=== PATIENT | female | born 1985 | race Caucasian/White ===

== ENCOUNTER 2017-09-05 13:35 | Emergency (ER) | payer BC ==
--- NOTE | 2017-09-05 14:06 | ED ---
- HPI Summary HPI Summary: There is erythema presents ED with complaints of actively miscarrying, heavy vaginal bleeding that began a few hours ago. Patient states she began spotting this morning was seen by her FLY WORKER around 11:30 had an ultrasound that did confirm miscarriage. Patient was approximately 8 weeks per ultrasound results. 2 P1 including this . Has never had a miscarriage before. States after leaving doctor's office she began bleeding more heavily. States she went through a heavy tampon in approximately 10 minutes. States every time she stood up she hemorrhaged. Was told by FLY WORKER to go to ER if she was soaking through tampons within an hour. Denies any concern for infection. Is in minimal pain. Mild cramping. No other complaints or concerns. No past medical history medications. - History of Current Complaint Chief Complaint: EDVaginalBleeding Stated Complaint: ABNORMAL BLEEDING Hx Obtained From: Patient Chief Complaint: Vaginal Bleeding Onset/Duration: Started Hours Ago, Still Present Timing: Constant Severity: Mild Current Severity: None Pain Intensity: 2 Location of Pain: None Character: Cramping Aggravating Factors: Movement - Standing up standing up Alleviating Factors: Nothing Associated Signs and Symptoms: Positive: Vaginal Bleeding or Discharge - Assessment Hx Now: Yes Hx : 2 Hx Para: 1 SAB: 0 IEA: 0 History of Ectopic : No Vaginal Bleeding Amount: Large - Additional Pertinent History Maternal Blood Type and Rh: A Positive - Allergies/Home Medications Allergies/Adverse Reactions: Allergies Allergy/AdvReac Type Severity Reaction Status Date / Time No Known Allergies Allergy Verified 09/05/17 13:49 Home Medications: Home Medications Vitamin TAB* 1 tab PO DAILY 09/05/17 [History Confirmed 09/05/17] PMH/Surg Hx/FS Hx/Imm Hx Endocrine/Hematology History: Denies: Hx Anticoagulant Therapy, Hx Blood Disorders, Hx Anemia Cardiovascular History: Denies: Hx Hypertension Respiratory History: Denies: Hx Asthma - Surgical History Surgery Procedure, Year, and Place: wisdom teeth - Immunization History Immunizations Up to Date: Yes Infectious Disease History: No Infectious Disease History: Reports: Traveled Outside the [place] in Last 30 Days - came back from [facility] on Monday Denies: History Other Infectious Disease - Family History Known Family History: Positive: None - Social History Alcohol Use: None Substance Use Type: Reports: None Smoking Status (MU): Never Smoked Tobacco Review of Systems Constitutional: Negative Cardiovascular: Negative Respiratory: Negative Gastrointestinal: Negative Positive: other - vaginal bleeding, cramping All Other Systems Reviewed And Are Negative: Yes Physical Exam - Physical Exam Triage Information Reviewed: Yes Vital Signs On Initial Exam: Temp 98.2 heart rate 108 blood pressure 130/74 O2 96 % respirations 16 Vital Signs Reviewed: Yes Appearance: Positive: Well-Appearing, No Pain Distress, Well-Nourished Skin: Positive: Warm, Skin Color Reflects Adequate Perfusion, Dry. Negative: Cold, Numb, Soft, "Wooden", Cyanosis @, Diaphoretic, Jaundiced, Erythema @ Head/Face: Positive: Normal Head/Face Inspection ENT: Positive: Pharynx normal Neck: Positive: Supple Respiratory/Lung Sounds: Positive: Clear to Auscultation, Breath Sounds Present. Negative: Rales, Rhonchi, Wheezes Cardiovascular: Positive: Normal, RRR, Pulses are Symmetrical in both Upper and Lower Extremities. Negative: Murmur, Rub Abdomen Description: Positive: Nontender - Minimal discomfort on palpation of suprapubic area, Soft. Negative: CVA Tenderness (R), CVA Tenderness (L), Distended, Guarding Bowel Sounds: Positive: Present Musculoskeletal: Positive: Normal, Strength/ROM Intact Neurological: Positive: Normal, Sensory/Motor Intact, Alert, Oriented to Person Place, Time - Vaginal Assessment Examined By: Nereida Robles - & Dr Garcia Diagnostics - Vital Signs Vital Signs Temp Pulse Resp BP Pulse Ox 09/05/17 14:00 102 117/69 97 09/05/17 13:58 76 92 09/05/17 13:57 116/68 09/05/17 13:42 98.2 F 108 16 130/74 96 - Laboratory Result Diagrams: 09/05/17 16:18 09/05/17 14:17 Lab Statement: Any lab studies that have been ordered have been reviewed, and results considered in the medical decision making process. Re-Evaluation - Re-Evaluation First Eval Re-Evaluation Time: 16:45 Change: Improved - bleeding has decreased significantly, updated on labs and plan. Course/Dx - Course Course Of Treatment: No further imaging required as patient had ultrasound early this morning to confirm miscarriage. Labs obtained original H&H were normal repeated CBC 2 hours later to recheck H&H, still and normal range. Did not appear to be hemorrhaging or anemic at this time. Normal vitals throughout stay. Patient otherwise asymptomatic. Products of conception were obtained during pelvic exam in the vaginal canal. Sent down to lab. Patient is no longer experiencing heavy bleeding, light "menses like" bleeding per patient even when changing positions/sitting/standing. Cervix and vaginal canal appeared normal after removal of clots and products of conception. Encouraged use of pads rather than tampons. Tylenol or ibuprofen for discomfort along compresses. Soaking through a maxi tampon or pad within an hour over several hours time span return to ED. Patient is aware worsening signs and symptoms watch out for. Follow-up with FLY WORKER, call to make an appointment to have repeat hCG and ultrasound. Patient agrees and understands plan. Dr Garcia was present during pelvic and agreed with plan. Spoke with Dr Eileen GUTIERREZ clay pigeon loader who also agrees with plan and will follow up with patient in office. - Differential Diagnosis/HQI/PQRI: Spontaneous , Early , Retained Products of Conception, Vaginal Bleeding, Other: - hemmorhage - Diagnoses Provider Diagnoses: Miscarriage - Provider Notifications Discussed Care Of Patient With: Henry Arellano - Dr Garcia Time Discussed With Above Provider: 16:40 Instructed by Provider To: Have Pt Call For Appt. Discharge - Sign-Out/Discharge Documenting (check all that apply): Discharge - Discharge Plan Condition: Improved Disposition: HOME Patient Education Materials: Miscarriage (ED) Referrals: No Primary Care Phys,NOPCP [Primary Care Provider] - Henry Arellano MD [Medical Doctor] - Additional Instructions: Please follow up and make an appointment have repeat blood work and ultrasound with your FLY WORKER as we discussed. Continue using pads. Warm compresses, ibuprofen/Tylenol as needed for any discomfort. Any new or worsening symptoms such as heavy bleeding for prolonged period time, soaking through maxipads every hour, increased pain, lightheadedness or dizziness please return to ED as we discussed. Follow-up with FLY WORKER. - Billing Disposition and Condition Condition: IMPROVED Disposition: HOME Physical Exam - Physical Exam Pelvic Exam: External Exam Normal, Active Bleeding, Other - products of conception noted in the vaginal canal, no signs of hemorrhaging, clots removed. Products of conception were obtained and sent to lab
[2017-09-05 14:38] LABS: ABS Basophils 0 10^3/ul (0-0.2); ABS Eosinophils 0 10^3/ul (0-0.6); ABS Lymphocytes 1.4 10^3/ul (1.0-4.8); ABS Monocytes 0.5 10^3/ul (0-0.8); ABS Neutrophils 9.2 10^3/ul (1.5-7.7); ABS Nucleated RBC 0 10^3/ul; Eosinophil % 0.2 % (0-6); Hematocrit 36 % (35-47); Hemoglobin 12.3 g/dl (12.0-16.0); Lymphocyte % 12.6 % (25-47); Mean Corpuscular HGB Conc 34 g/dl (31-36); Mean Corpuscular Hemoglobin 28 pg (27-31); Mean Corpuscular Volume 84 fL (80-97); Mean Platelet Volume 8.8 um3 (7.4-10.4); Nucleated Red Blood Cells % 0; Platelet Count 249 10^3/ul (150-450); Red Blood Count 4.35 10^6/ul (4.0-5.4); Red Cell Distribution Width 13 % (10.5-15); White Blood Count 11.2 10^3/ul (3.5-10.8)
[2017-09-05 14:51] LABS: INR 0.98 (0.77-1.02)
[2017-09-05 14:58] LABS: EGFR Non-African American 115.1 (>60)
[2017-09-05 16:24] LABS: Hematocrit 35 % (35-47); Hemoglobin 11.9 g/dl (12.0-16.0); Mean Corpuscular HGB Conc 34 g/dl (31-36); Mean Corpuscular Hemoglobin 28 pg (27-31); Mean Corpuscular Volume 84 fL (80-97); Mean Platelet Volume 8.7 um3 (7.4-10.4); Platelet Count 248 10^3/ul (150-450); Red Blood Count 4.19 10^6/ul (4.0-5.4); Red Cell Distribution Width 14 % (10.5-15); White Blood Count 13.2 10^3/ul (3.5-10.8)
[2017-09-05 17:07] VITALS: BP 110/62
== END 2017-09-05 17:06 | disposition home or self-care (01) ==
LOC: ED 13:35
DX: O03.9 Complete or unspecified spontaneous abortion without complication (principal)
CPT/HCPCS: 36415; 80053; 83605; 84702; 85025; 85027; 85610; 85730; 86850; 86900; 86901; 88305; 99283

== ENCOUNTER 2018-03-20 08:46 | Emergency (ER) | payer BC ==
[2018-03-20 09:03] VITALS: BP 113/69
--- NOTE | 2018-03-20 10:35 | UC ---
Skin Complaint HPI - HPI Summary HPI Summary: 2 months of skin lesions that come and go diffusely over her feet, extremities and face. None on abdomen. They start as tender, erythematous raised papules or nodules and then eventually blister and then rupture and drain serous fluid. They're very itchy at times. No fever. No recent travel or new medications or exposures she is aware of. Has been using OTC hydrocortisone cream with some minimal relief. Has a dermatology appointment on 04/09/18 but today developed a lesion on her right upper eyelid so decided to come in for evaluation. Patient is 20 weeks . - History of Current Complaint Chief Complaint: UCSkin Time Seen by Provider: 03/20/18 09:50 Stated Complaint: SKIN ISSUE Hx Obtained From: Patient Onset/Duration: Gradual Onset, Lasting Weeks, Still Present Onset Severity: Moderate Current Severity: Moderate Pain Intensity: 5 Pain Scale Used: 0-10 Numeric Location: Diffuse Character: Pruritus, Pain, Redness, Raised Aggravating Factor(s): Touch Alleviating Factor(s): Nothing Associated Signs & Symptoms: Positive: Rash, Drainage, Tenderness. Negative: Fever, Hoarseness - Allergy/Home Medications Allergies/Adverse Reactions: Allergies Allergy/AdvReac Type Severity Reaction Status Date / Time No Known Allergies Allergy Verified 03/20/18 09:03 Home Medications: Home Medications Acetaminophen [Tylophen] 500 mg PO ONCE PRN 03/20/18 [History Confirmed 03/20/18 ] Hydrocortisone 0.5% CM(NF) [Hydrocortisone 0.5% CREAM(NF)] 1 applic TOPICAL ONCE PRN 03/20/18 [History Confirmed 03/20/18] Review of Systems Constitutional: Negative Skin: Rash Respiratory: Negative Cardiovascular: Negative Gastrointestinal: Negative All Other Systems Reviewed And Are Negative: Yes PMH/Surg Hx/FS Hx/Imm Hx Previously Healthy: Yes Other History Of: Negative For: Anticoagulant Therapy - Surgical History Surgical History: Yes Surgery Procedure, Year, and Place: wisdom teeth - Family History Known Family History: Positive: None - Social History Alcohol Use: None Substance Use Type: None Smoking Status (MU): Never Smoked Tobacco - Immunization History Most Recent Influenza Vaccination: current Most Recent Tetanus Shot: 09/17/15 Most Recent Pneumonia Vaccination: none Physical Exam Triage Information Reviewed: Yes Appearance: Well-Appearing, No Pain Distress, Well-Nourished Vital Signs: Initial Vital Signs Temp 98.1 F 10/23/18 08:56 Pulse 82 03/20/18 08:56 Resp 18 03/20/18 08:56 BP 113/69 03/20/18 08:56 Pulse Ox 97 03/20/18 08:56 Vital Signs Reviewed: Yes Eyes: Positive: Conjunctiva Clear ENT: Positive: Hearing grossly normal Neck: Positive: Supple Respiratory: Positive: No respiratory distress, No accessory muscle use Cardiovascular: Positive: Pulses Normal Abdomen Description: Positive: Soft, Other: - gravid Musculoskeletal: Positive: No Edema Neurological: Positive: Alert Psychological: Positive: Age Appropriate Behavior Skin: Positive: rashes - SCATTERED TENDER ERYTHEMATOUS PAPULES/VESICLES OVER FEET, UPPER EXTREMTIES. ONE ON RIGHT CHEEK AND RIGHT UPPER EYELID. IN VARIOUS STAGES OF HEALING. TENDER. NO FLUCTUANCE OR ACTIVE DRAINING. Course/Dx - Course Course Of Treatment: UNCLEAR ETIOLOGY OF RASH. NOT CLEARLY CONSISTENT WITHY ANY OF THE DERMATOSES OF . APPT WITH DERM MADE FOR PT TODAY AT 2:30PM. - Diagnoses Provider Diagnoses: DERMATITIS IN Discharge - Sign-Out/Discharge Documenting (check all that apply): Patient Departure All imaging exams completed and their final reports reviewed: No Studies - Discharge Plan Condition: Stable Disposition: HOME Patient Education Materials: Dermatitis (ED) Referrals: Hermelindo Guevara PA [Physician Atomizer Assembler] - (YOU HAVE AN APPT TODAY AT 2:30PM. PLS ARRIVE AT 2PM FOR PAPERWORK) Additional Instructions: UNCLEAR ETIOLOGY OF YOUR RASH TODAY. FOLLOW-UP WITH DERMATOLOGY TODAY AT 2: 30PM. IF YOU NEED TO RESCHEDULE HERE ARE THE CONTACT NUMBERS FOR THE LOCAL DERMATOLOGISTS. DERMATOLOGY IN [place] DR. GHISLAINE LINDSEY [facility], [facility] [address]; [address] [place] [address] Dr. Kasandra Urrutia [place] Address: [address] [place] [address] DR. EDELMIRA [facility]ON [facility] D[facility]at[facility] [address] [place] [address] DERMATOLOGY IN [place] Dr. Brittany Almonte DERMATOLOGY IN [place] DR. ARMAND AVINA [phone] - Billing Disposition and Condition Condition: STABLE Disposition: Home
== END 2018-03-20 10:28 | disposition home or self-care (01) ==
LOC: UCEAST 08:46
DX: O99.712 Diseases of the skin and subcutaneous tissue complicating pregnancy, second trimester (principal); L30.9 Dermatitis, unspecified; Z3A.20 20 weeks gestation of pregnancy
CPT/HCPCS: 99211; G0463

== ENCOUNTER 2018-06-30 09:38 | Emergency (ER) | payer BC ==
[2018-06-30 09:49] VITALS: BP 100/67
--- NOTE | 2018-06-30 10:10 | UC ---
Respiratory Complaint HPI - HPI Summary HPI Summary: 32 yo concerned with flu. mild URI symptoms on and off for 5 weeks. No problems with the . . No ccx with previous . Temp to 103 at home. Took 1000mg acetaminophen. Afebrile here. VSS; afebrile. Nurses: respiratory complaints. - History of Current Complaint Chief Complaint: UCRespiratory Stated Complaint: FEVER Time Seen by Provider: 06/30/18 09:53 Hx Obtained From: Patient ?: No Pain Intensity: 2 - Risk Factors Pulmonary Embolism Risk Factors: Negative - Allergies/Home Medications Allergies/Adverse Reactions: Allergies Allergy/AdvReac Type Severity Reaction Status Date / Time No Known Allergies Allergy Verified 06/30/18 09:49 PMH/Surg Hx/FS Hx/Imm Hx Previously Healthy: Yes Other History Of: Negative For: Anticoagulant Therapy - Surgical History Surgical History: Yes Surgery Procedure, Year, and Place: wisdom teeth - Family History Known Family History: Positive: None - Social History Occupation: Employed Full-time - teacher Alcohol Use: None Substance Use Type: None Smoking Status (MU): Never Smoked Tobacco - Immunization History Most Recent Influenza Vaccination: current Most Recent Tetanus Shot: 09/17/15 Most Recent Pneumonia Vaccination: none Review of Systems All Other Systems Reviewed And Are Negative: Yes Constitutional: Positive: Fever Skin: Positive: Negative Eyes: Positive: Negative ENT: Positive: Negative, Sinus Congestion Respiratory: Positive: Cough. Negative: Shortness Of Breath Cardiovascular: Positive: Negative Gastrointestinal: Positive: Negative Genitourinary: Positive: Negative Motor: Positive: Negative Neurovascular: Positive: Negative Musculoskeletal: Positive: Negative Neurological: Positive: Negative Psychological: Positive: Negative Is Patient Immunocompromised?: No - had flu shot Physical Exam Triage Information Reviewed: Yes Appearance: Well-Appearing Vital Signs: Initial Vital Signs Temp 97.6 F 06/30/18 09:46 Pulse 100 06/30/18 09:46 Resp 20 06/30/18 09:46 BP 100/67 06/30/18 09:46 Pulse Ox 100 06/30/18 09:46 Vital Signs Reviewed: Yes Eye Exam: Normal ENT Exam: Normal ENT: Positive: Normal ENT inspection, Pharynx normal, Pharyngeal erythema Dental Exam: Normal Neck exam: Normal Neck: Positive: Supple Respiratory Exam: Normal Respiratory: Positive: Chest non-tender, Lungs clear, Normal breath sounds Cardiovascular Exam: Normal Cardiovascular: Positive: RRR, No Murmur, Pulses Normal Abdominal Exam: Normal Abdomen Description: Positive: Nontender, No Organomegaly, Soft Musculoskeletal Exam: Normal Neurological Exam: Normal Psychological Exam: Normal Skin Exam: Normal UC Diagnostic Evaluation - Laboratory Pertinent Lab Values Are: WNL Except: - positive influenza O2 Sat by Pulse Oximetry: 100 Respiratory Course/Dx - Course Course Of Treatment: 35 week , uncomplicated , with fever and URI symptoms. Positive for influenza. Patient now afebrile after acetaminophen at home. Looks well hydrated. Will start Tamiflu. - Differential Dx/Diagnosis Differential Diagnosis/HQI/PQRI: Influenza, Lower Resp Infection, Sinusitis Provider Diagnosis: Influenza Discharge - Sign-Out/Discharge Documenting (check all that apply): Patient Departure All imaging exams completed and their final reports reviewed: No Studies - Discharge Plan Condition: Stable Disposition: HOME Patient Education Materials: Influenza (DC) Referrals: No Primary Care Phys,NOPCP [Primary Care Provider] - Additional Instructions: WE DISCUSSED: PLEASE SEEK CARE AT THE EMERGENCY DEPARTMENT IF SYMPTOMS WORSEN OR IF NEW SYMPTOMS DEVELOP. FOLLOW UP WITH YOUR PRIMARY CARE PHYSICIAN IF CONDITION CONTINUES BEYOND 3 DAYS WITHOUT IMPROVEMENT. YOUR DIAGNOSIS IS: INFLUENZA YOUR PRESCRIPTION RECOMMENDATION IS: TAMIFLU, ONE PILL TWICE A DAY FOR 5 DAYS; ACETAMINOPHEN FOR TEMP ABOVE 101.5. OTHER INSTRUCTIONS: STAND UNDER SHOWER STREAM TO LOOSEN SECRETIONS. USE A VAPORIZOR. STAY AWAY FROM ANY SMOKE OR IRRITANTS. USE SALINE NASAL SPRAY TO KEEP FLOW OF MUCOUS FROM NOSTRILS AND SINUSES. CONSIDER USING NETI POT TO HELP WITH ALLERGIES AND CONGESTION IN THE NOSE. USE THIS THREE TIMES A WEEK. YOU CAN GET THIS AT [facility] IN [place] OR VARIOUS DRUGSTORES. DRINK LOTS OF WARM FLUIDS USEFUL HOME REMEDIES: WARM WATER GARGLES, WITH TSP OF SALT PER 8 OUNCES OF WATER, GARGLE FOR A FEW SECONDS AND SPIT OUT; GARGLE AND SPIT OUT; EVERY THREE HOURS. AND/OR: WARM WATER OR TEA, HONEY AND LEMON; 2-3 CUPS A DAY. RE-CHECK IN 1O DAYS NEEDED. RE-CHECK SOONER IF INCREASED PAIN OR TEMPERATURE. - Billing Disposition and Condition Condition: STABLE Disposition: Home
[2018-06-30 10:30] LABS: Influenza A Molecular POSITIVE (Negative)
== END 2018-06-30 11:05 | disposition home or self-care (01) ==
LOC: UCEAST 09:38
DX: O99.513 Diseases of the respiratory system complicating pregnancy, third trimester (principal); J11.1 Influenza due to unidentified influenza virus with other respiratory manifestations; Z3A.35 35 weeks gestation of pregnancy
CPT/HCPCS: 99212; G0463

== ENCOUNTER 2018-07-23 14:34 | Inpatient (IN) | payer BC ==
--- NOTE | 2018-07-23 15:47 | PN ---
Progress Note - Progress Note Date of Service: 07/23/18 Note: S: Patient reports ctx since last night, increasing in frequency and strength in past few hours. O: VE: 2-3cm/80%/vtx -1 VSS, afebrile FHT 145, occasional variable decels, +accels, mod variability UCs q 4-6 min A: IUP @ 38+5 weeks gestation Assess for early labor IBOW No evidence acidemia P: Recheck cervix in 1-2 hours, consider admission vs discharge at that time.
[2018-07-23] MEDS ORDERED: Buffered Lidocaine 1% SYRIN* 1 ML/SYRINGE INTRADERM ONE (17:50)
[2018-07-23] MEDS ORDERED: Lactated Ringers 1000 ML Bag* 1,000 ML IV ONE (17:50)
[2018-07-23] MEDS ORDERED: Lactated Ringers 1000 ML Bag* 1,000 ML IV SCH (18:00)
--- NOTE | 2018-07-23 18:00 | HP ---
General Information - Reason for Visit IUP @ 38+5 weeks gestation. Contractions increasing in intensity and frequency today since late last night. - General Information Maternal Age: 32 Grav: 3 Para: 1 SAB: 1 IEA: 0 Estimated Due Date: 08/01/18 Determined By: LMP Maternal Blood Type and Rh: A Positive - Results this Serology/RPR Result: Non-Reactive Rubella Result: Immune HBsAg Result: Negative HIV Result: Negative GBS Culture Result: Negative Past Medical History Delivery History: Hx Uncomplicated Vaginal Delivery Pertinent Past Medical History: Non-Contributory Past Medical History Comment: anxiety Pertinent Past Surgical History: None Past Surgical History Comment: [place] teeth 2013 Pertinent Family History: Non-Contributory Family History Comment: Fibroids [place] lung [place] Emphysema - Antepartal Records Antepartal Records: Reviewed, Uncomplicated Review of Systems Constitutional: Uncomfortable CV Complaint: No Respiratory: Shortness of Breath: No Gastrointestinal: No Nausea/Vomiting, Normal Bowel Movement Genitourinary: No Dysuria, No Leaking Fluid, Spotting Musculoskeletal: Contractions Neurological: No Headache, No Visual Changes Movement: Normal Exam Allergies/Adverse Reactions: Allergies No Known Allergies Allergy (Verified 06/30/18 09:49) BP 134/80 T 98.2 HR 98 O2 100 RR 18 - Measurements Height: 5 ft 5 in Weight: 170 lb Weight in lbs: [phone] Body Mass Index (BMI): 28.3 Pre- Weight: 135 lb Weight Gained This : 35 lbs and 0 ozs - Exam Breast: Breast Exam Deferred CVA: No CVA Tenderness Extremities: No Edema Heart: Normal Rhythm/Heart Sounds HEENT: No Significant Findings Lungs: Clear Bilaterally Rectal: Rectal Exam Deferred Reflexes: DTR 2+, - - no clonus Thyroid: - - WNL @ entry to care - Abdominal Exam Abdomen Exam: Non-Tender, Fundal Height Consistent with Dates Targeted Exam Findings See L&D Outpatient Visit Provider Note for Findings: N/A Estimated Weight: 7.5 lb Cervical Exam: 3cm, 4cm Effacement: 90% Station: -1 Presenting Part: Vertex Membrane Status: Intact Bleeding/Discharge: Bloody Show EFM Findings - External Monitor Findings Baseline Heart Rate: 155 External Monitor Findings: Accelerations Present, No Pattern of Variable or Late Decelerations, Variability Moderate Contractions: Regular, Moderate, < 45 Seconds Contraction Frequency: Q 4-5 Assessment/Plan - Assessment IUP @ 38+5 weeks gestation in early labor. IBOW. No evidence metabolic acidemia - Plan Plan: Admit - Anticipate Vaginal Delivery Plan Comment: Admit to L&D, pain management as desired. Anticipate SVB. - Date/Time of Admission Date of Admission: 07/23/18 Time of Admission: 17:51
--- NOTE | 2018-07-23 21:09 | PN ---
Progress Note - Progress Note Date of Service: 07/23/18 Note: S: Patient coping well, reports ctx increasing in length and intensity. O: VE 6cm/100/0 FHT 155 Cat 1 UCs q 2-4 min VSS, afebrile A: IUP @ 38+5 in active labor IBOW No evidence acidemia P: Patient to ambulate, possibly try tub. Prefers not to have epidural but open to it if she feels she needs it. Anticipate SVB.
--- NOTE | 2018-07-24 00:35 | PN ---
Progress Note - Progress Note Date of Service: 07/24/18 Note: S: Patient coping very well with contractions, breathing through. Desires VE. Declines need for pain medication at this time. O: VE 8cm/100/+1 FHT 125 Cat 1 UCs Q 2-4 min vss A: IUP in active labor No acidemia P: Expectant management. Anticipate SVB
[2018-07-24] MEDS ORDERED: OXYTOCIN* 10 UNITS/ML 1 ML VIAL IM ONE (03:35)
[2018-07-24] MEDS ORDERED: Glycerin ADULT SUPP PR PRN (03:35)
[2018-07-24] MEDS ORDERED: Acetaminophen TAB* 325 MG PO PRN (03:35)
--- NOTE | 2018-07-24 03:46 | PROCNOTE ---
[facility] OB: Delivery Note - Nursery Level of Nursery: Regular/Bedside - Perineum Perineal Injury: 1st Degree Perineal Repair: By Delivering Practioner - Events Delivery Events of Note: Pitocin Only After Delivery - Additional Delivery Notes Additional Delivery Notes: IUP @ 38+6 admitted in early labor. Patient with steady progression to small cervical lip and urge to push. Manually reduced with first push. LOL 15'19", pushed 10 min. Baby born OA to CELESTE @ 0303 with nuchal cord and hand and cord also wrapped around body, shoulders following easily. Delivered through and unwrapped after. To maternal abdomen with spontaneous cry and HR >110. Apgars 9 , 9. Cord doubly clamped and cut by FOB once pulsations ceased. 10 IU of IM pitocin given, fundus firm to massage. Perineum with small first degree laceration, repaired with 2 stitches. Baby at breast to initiate , mother and baby stable. Baby name Karl.
[2018-07-24] MEDS ORDERED: Lactated Ringers 1000 ML Bag* 1,000 ML IV SCH (04:00)
[2018-07-24] MEDS: Docusate CAP* 100 MG PO SCH ×3 (09:20→20:27)
[2018-07-24] MEDS: Dibucaine 1% 28.35 GM TUBE PR PRN (20:27)
[2018-07-24] MEDS: Witch Hazel PAD* JAR TOPICAL PRN (20:27)
[2018-07-25 06:32] LABS: ABS Basophils 0.2 10^3/ul (0-0.2); ABS Eosinophils 0.4 10^3/ul (0-0.6); ABS Lymphocytes 4.2 10^3/ul (1.0-4.8); ABS Monocytes 1.3 10^3/ul (0-0.8); ABS Neutrophils 12.6 10^3/ul (1.5-7.7); ABS Nucleated RBC 0 10^3/ul; Eosinophil % 1.9 %; Hematocrit 28 % (35-47); Hemoglobin 9.2 g/dl (12.0-16.0); Lymphocyte % 22.7 %; Mean Corpuscular HGB Conc 33 g/dl (31-36); Mean Corpuscular Hemoglobin 28 pg (27-31); Mean Corpuscular Volume 85 fL (80-97); Mean Platelet Volume 10.3 fL (7.4-10.4); Nucleated Red Blood Cells % 0; Platelet Count 217 10^3/ul (150-450); Red Blood Count 3.28 10^6/ul (4.00-5.40); Red Cell Distribution Width 15 % (10.5-15); White Blood Count 18.7 10^3/ul (3.5-10.8)
[2018-07-25] MEDS: Ferrous Gluconate TAB* 324 MG TAB PO SCH ×2 (08:29→20:15)
[2018-07-25] MEDS: Docusate CAP* 100 MG PO SCH ×3 (08:29→20:14)
[2018-07-25] MEDS: Ibuprofen TAB* 600 MG PO PRN ×2 (14:35→20:14)
--- NOTE | 2018-07-25 18:20 | PN ---
Progress Note - Progress Note Date of Service: 07/25/18 Note: Brief Gen Surgery Note (full note dictated): S: 32 yo one day w/ baseline h/o hemorrhoids, and 8 d s/p incision and extraction of clot x 2 for acute thrombosed hemorrhoids in the office w/ Dr. Estrada. Now w/ one day h/o acute hemorrhoidal swelling and pain on the Left side (opposite of Dr. Estrada's procedure last week). States that her pain is 6/ 10; she is using some Ibuprofen. She had a BM this a.m., which she states actually made things feel a bit better, as did a warm shower following. She had a small amt of bleeding w/ the BM, but otherwise no ongoing bleeding. She had similar thrombosed hemorrhoids with her first , ~ 2.5 yrs ago. O: afeb VSS Exam: (with her s.o. present) Left sided hemorrhoids, pink, edematous, mildly tender, with a small area at the cephalad aspect where there is likely a small thrombus, with increased tenderness. Some skin tags on the right, but no active disease. A/P: swollen acute on chronic hemorrhoids, with a limited area of thrombosis which is unlikely to require surgical intervention. She is advised to continue to rest, limit prolonged sitting or standing, and continue tub soaks and ibuprofen. As she has seen Dr. Estrada in the recent past, she will f/u with him if things are not improving on their own within one week, or sooner if things are worsening . Case was discussed w/ Dr. Javier (inspector radar and electronics).
--- NOTE | 2018-07-25 19:32 | CONS ---
CC: Dorian Pagan CNM * SURGICAL CONSULT NOTE: DATE OF CONSULT: 07/25/18 ATTENDING SURGEON: Dr. Tomas Estrada. CHIEF COMPLAINT: Hemorrhoids. HISTORY OF PRESENT ILLNESS: This is a generally healthy 32-year-old female who is 1 day . She has a prior history of hemorrhoids, both during times of . Most recently, she underwent incision and extraction of clot of 2 acute thrombosed external hemorrhoids in the office with Dr. Estrada on . She had some bleeding the first day, which tapered off quickly thereafter and after about 3 days, she was essentially symptom-free. The current area of concern began yesterday, her day of delivery and are localized on the left side , opposite the area of intervention last week. She reports pain at a level of 6 /10 with some minor improvement with ibuprofen. She had a bowel movement this morning and states that things actually improved somewhat after the bowel movement and a warm shower to follow. PHYSICAL EXAMINATION: She is afebrile and vital signs are stable. General: She appears well and in no acute distress. Examination of the perianal area reveals large area of edematous hemorrhoids on the left side, which includes a limited area of apparent thrombosis at the cephalad portion, but the remainder ( 80 to 90%) appears to be just edema and is significantly less tender to palpation. Color is pink and there is no active hemorrhoidal disease on the right. A digital rectal exam was not performed. IMPRESSION: Swollen [id number] hemorrhoids, left side, with limited area thrombosis, which is unlikely to require surgical intervention. She is advised to continue to rest as well as to limit prolonged sitting or standing. She will continue tub soaks and ibuprofen p.r.n. As she has seen Dr. Estrada in the past, she will follow up with him if things have not significantly improved within 1 week with conservative measures or sooner if things are worsening. Her case was discussed with Dr. Javier who is on-call. MIHIR LARES, ABRIL [id number]/[facility] #: [id number] [facility] NETWORKEffie
[2018-07-25] MEDS: Hydrocortisone 1% CREAM* 30 GM TUBE TOPICAL SCH (23:10)
[2018-07-26] MEDS: Ibuprofen TAB* 600 MG PO PRN ×2 (02:14→08:18)
[2018-07-26] MEDS: Witch Hazel PAD* JAR TOPICAL PRN (08:18)
[2018-07-26] MEDS: Dibucaine 1% 28.35 GM TUBE PR PRN (08:18)
[2018-07-26] MEDS: Docusate CAP* 100 MG PO SCH (08:18)
[2018-07-26] MEDS: Ferrous Gluconate TAB* 324 MG TAB PO SCH (08:18)
[2018-07-26 08:22] VITALS: BP 112/66
[2018-07-26] MEDS: Hydrocortisone 1% CREAM* 30 GM TUBE TOPICAL SCH (09:37)
== END 2018-07-26 11:48 | disposition home or self-care (01) | DRG 560 ==
LOC: MCHOBOUT 14:34 → MCHOB 17:51
PROVIDERS: ADMIT Midwife; ATTEND Midwife
PROC: 10907ZC Drainage of Amniotic Fluid, Therapeutic from Products of Conception, Via Natural or Artificial Opening (ICD-10-PCS; principal; 2018-07-23)
PROC: 10E0XZZ Delivery of Products of Conception, External Approach (ICD-10-PCS; 2018-07-23)
PROC: 4A1HXCZ Monitoring of Products of Conception, Cardiac Rate, External Approach (ICD-10-PCS; 2018-07-23)
PROC: 0HQ9XZZ Repair Perineum Skin, External Approach (ICD-10-PCS; 2018-07-23)
DX: O32.6XX0 Maternal care for compound presentation, not applicable or unspecified (principal); O22.43 Hemorrhoids in pregnancy, third trimester; Z37.0 Single live birth; O69.82X0 Labor and delivery complicated by other cord entanglement, without compression, not applicable or unspecified; Z3A.38 38 weeks gestation of pregnancy; O76 Abnormality in fetal heart rate and rhythm complicating labor and delivery; O70.0 First degree perineal laceration during delivery
CPT/HCPCS: 36415; 85025; A9270-GY; J2590